=== PATIENT | male | born 1950 | race Caucasian/White ===

== ENCOUNTER 2020-05-09 14:48 | Outpatient (CLI) | payer MEDICARE | END 2020-05-09 23:59 | disposition home or self-care (01) | LOC: ROC 14:48 | PROVIDERS: ATTEND Radiology Radiation Oncology | DX: Z08 Encounter for follow-up examination after completed treatment for malignant neoplasm (principal); C34.11 Malignant neoplasm of upper lobe, right bronchus or lung | CPT/HCPCS: G0463 ==

== ENCOUNTER 2020-11-17 08:05 | Outpatient (CLI) | payer MEDICARE | END 2020-11-17 23:59 | disposition home or self-care (01) | LOC: ROC 08:05 | PROVIDERS: ATTEND Radiology Radiation Oncology | DX: Z02.9 Encounter for administrative examinations, unspecified (principal) ==